=== PATIENT | male | born 1950 | race Hispanic/Latino ===

== ENCOUNTER 2019-09-12 06:03 | Day surgery (SDC) | payer OTHER ==
--- NOTE | 2019-09-11 16:57 | NUR ---
ekg abnormal ekg reported to dr. hoffman, no further orders given, ok to proceed with sx
[2019-09-11 16:58] VITALS: BP 140/68
[2019-09-11 17:08] LABS: BASOPHILS % (AUTO) 0.6 % (0.0-5.0); EOSINOPHILS % (AUTO) 2.8 % (0.0-8.0); HEMATOCRIT 37.5 % (42-54); LYMPHOCYTES % (AUTO) 30.2 % (21.0-51.0); MEAN CORPUSCULAR HEMOGLOBIN 27.8 pg (27.0-33.0); MEAN CORPUSCULAR HGB CONC 31.5 g/dL (32.0-36.0); MEAN CORPUSCULAR VOLUME 88.4 fL (79-99); MONOCYTES % (AUTO) 9.7 % (3.0-13.0); NEUTROPHILS % (AUTO) 56.5 % (40.0-77.0); PLATELET COUNT (AUTO) 115 K/uL (130-400); RED BLOOD CELL COUNT(AUTO) 4.24 MIL/uL (4.50-6.20); RED CELL DISTRIBUTION WIDTH 16.1 % (11.0-15.5)
[2019-09-11 17:19] LABS: POTASSIUM 4.3 mmol/L (3.5-5.1)
--- NOTE | 2019-09-11 17:29 | NUR ---
LABS ABNORMAL LABS FAXED TO DR. KAPOOR PER THERE REQUEST , PENDING CALL BACK
--- NOTE | 2019-09-11 17:45 | NUR ---
ABNORMAL LABS CALL BACK FROM DR. KAPOOR'S OFFICE. DR. KAPOOR REVIEWED CBC, NO FURTHER ORDERS GIVEN, MAY PROCEED WITH PLANNED PROCEDURE.
[~2019-09-12] VITALS: Ht 175.3 cm; Wt 85.8 kg
[2019-09-12] VITALS (17 sets, daily range): BP systolic 104–151; BP diastolic 53–82
[2019-09-12] MEDS: CEFTRIAXONE SODIUM 1 GM IVP SCH ×2 (06:00→08:45)
[~2019-09-12 06:03] MED LIST: DUTA0.5C17 PO; METO50TA18 PO; ROSU20TA31 PO; TAMS-1 PO
[2019-09-12] MEDS ORDERED: LACTATED RINGERS 1000ML 1,000 ML IV ONE (06:14)
[2019-09-12] MEDS ORDERED: LIDOCAINE PF 2% 5ML ABBOJECT ONE (08:43)
[2019-09-12] MEDS ORDERED: PROPOFOL 10 MG/ML 20ML VIAL IV ONE (08:44)
[2019-09-12] MEDS ORDERED: EPHEDRINE SULFATE 50 MG/ML AMPULE ONE (08:46)
[2019-09-12] MEDS ORDERED: ONDANSETRON HCL 4 MG/2 ML VIAL ONE (08:52)
[2019-09-12] MEDS ORDERED: FENTANYL CITRATE PF 50 MCG/1 ML 2ML VIAL ONE (08:52)
--- NOTE | 2019-09-12 10:47 | NUR ---
ASSESSMENT RECEIVED PT FROM PACU STAFF BEVERLY JARA. PT AAO X3. 14 [place] FC DRAINING TO BEDSIDE BY GRAVITY WITH RED TINGED CLEAR URINE. DEINERS PAIN AT THIS TIME.
[2019-09-12] MEDS ORDERED: PHENAZOPYRIDINE HCL 200 MG TABLET ONE (11:01)
--- NOTE | 2019-09-12 11:45 | NUR ---
DISCHARGE ORAL AND WRITTEN DISCHARGE INSTRUCTIONS GIVEN TO PT AND PTS . PRESCRIPTION CALLED IN TO [facility] [place]. SPOKE TO JHONNY PHARMACIST. NO OTHER QUESTIONS AT THIS TIME. 16 FR FC DRAINING WITH RED TINGE URINE.
== END 2019-09-12 12:00 | disposition home or self-care (01) ==
LOC: DAH 06:03
PROVIDERS: ATTEND Urology
DX: C67.5 Malignant neoplasm of bladder neck (principal); I10 Essential (primary) hypertension; I25.2 Old myocardial infarction; I25.10 Atherosclerotic heart disease of native coronary artery without angina pectoris; E78.00 Pure hypercholesterolemia, unspecified; Z95.1 Presence of aortocoronary bypass graft; Z98.890 Other specified postprocedural states; Z79.899 Other long term (current) drug therapy; Z87.891 Personal history of nicotine dependence; Z72.89 Other problems related to lifestyle; Z83.3 Family history of diabetes mellitus
CPT/HCPCS: 36415; 52204; 80048; 85025; 93005; A4215; A4221; A4222; A4223; A4344; A4510; A4600; A4663; A4930; A6260; J0696; J2001; J2405; J2704; J3010; J3490; J7120 ×2